=== PATIENT | male | born 1975 | race Caucasian/White ===

== ENCOUNTER 2022-11-12 19:48 | Emergency (ER) | payer OTHER ==
[~2022-11-12] VITALS: Ht 175.3 cm; Wt 104.3 kg
[2022-11-12 20:15] VITALS: BP 114/72
--- NOTE | 2022-11-12 22:50 | NUR ---
DR. RASCON AT BEDSIDE
--- NOTE | 2022-11-12 22:50 | NUR ---
47 Y/O M PRESENTS WITH AN EPISODE OF FAINTING AT HOME. PT STATED WITNESSED THE FAINT. PT DENIES ANY PAIN, NVD, AND BLOOD THINNERS. SKIN IS INTACT, A&OX4. PMH-WORK INJURY, YENIFER ON OCCIPTAL PART OF HEAD NKA
--- NOTE | 2022-11-12 23:24 | NUR ---
EKG COMPLETED AND HANDED TO DR RASCON. 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
[2022-11-13 01:07] VITALS: BP 116/74
--- NOTE | 2022-11-13 01:07 | NUR ---
Patient discharged with v/s stable. Written and verbal after care instructions given and explained. Patient verbalized understanding. Ambulatory with steady gait. All questions addressed prior to discharge. Advised to follow up with PMD.
== END 2022-11-13 01:07 | disposition home or self-care (01) ==
LOC: MED 19:48
DX: R06.02 Shortness of breath (principal)
CPT/HCPCS: 71045; 99283; Q0092